=== PATIENT | female | born 1970 | race Caucasian/White ===

== ENCOUNTER 2016-02-26 20:28 | Emergency (ER) | payer SELFPAY ==
--- NOTE | 2016-02-26 21:30 | ERRECORD ---
[facility] EMERGENCY RECORD HPI SHOULDER (20:48 JLOY) CHIEF COMPLAINT: Patient presents for evaluation of pain, to the right shoulder, Patient presents for evaluation of Pain in right shoulder, ant and along right suprospinatous muscle. Hurts to move. Started 1 week ago and gradually worsening. Feel 2 days before it started flat on her back but no pain at that time. No other injury. HISTORIAN: History provided by patient. MECHANISM OF INJURY: Unknown mechanism. LOCATION: Symptoms are generalized, Radiation is not present. QUALITY: Pain is dull in nature. TIME COURSE: Gradual onset of symptoms, Symptoms are worsening, are constant. ASSOCIATED WITH: No associated decreased range of motion, No associated decreased use, No associated distal injury, No associated distal neuro complaint, No associated elbow pain, No associated fever, No associated swelling, No associated weakness distal to injury. EXACERBATED BY: Patient's condition exacerbated by movement. RELIEVED BY: Patient's condition relieved by nothing. ROS (20:50 JLOY) CONSTITUTIONAL: Historian denies chills, denies fever. CARDIOVASCULAR: Historian denies chest pain. RESPIRATORY: Historian denies shortness of breath. MUSCULOSKELETAL: Historian denies neck pain. NEUROLOGIC: Historian denies focal weakness, denies paralysis, denies paresthesias, denies sensory changes. PAST MEDICAL HISTORY MEDICAL HISTORY: Flu vaccine not up to date, Tetanus immunization up to date, Pneumococcal vaccine not up to date, Notes: HHT, Past medical history includes history of hypertension, Past medical history includes neurological disease, transient ischemic attack, Past medical history includes pulmonary disease, asthma. Fibromyalgia, migraines. (20:39 MBOS) FEMALE SURGICAL HISTORY: Plastic tube from liver to pancreas, Surgical history of cholecystectomy, Surgical history of orthopedic surgery, Left Ulnar nerve relocated, Surgical history of tonsillectomy, Surgical history of tubal ligation. (20:39 MBOS) PSYCHIATRIC HISTORY: Psychiatric history includes, depression. (20:39 MBOS) SOCIAL HISTORY: Patient denies alcohol use, Patient denies drug use, Patient has no smoking history. (20:39 MBOS) NOTES: Nursing records reviewed, Agree with nursing records. (20:52 JLOY) KNOWN ALLERGIES No Known Allergies &a-1R&a+25V*p+0X*m0255D*c202B*c15G*c2P*p-0X&a-25V&a+1R Name: Gena Mcdaniel : 1970 F45 MedRec: [id number] AcctNum: [id number] Prepared: Sat Feb 26, 2016 21:24 by Interface Page 1 of 3 pMD [facility] EMERGENCY RECORD CURRENT MEDICATIONS (20:35 MBOS) lisinopril: TABLET : Strength - 10 mg : ORAL Patient Dose: 10 mg Oral once a day. hydrochlorothiazide: TABLET : Strength - 12.5 mg : ORAL Patient Dose: 10 mg Oral once a day. Zoloft: TABLET : Strength - 50 mg : ORAL Patient Dose: UNK. traMADol: TABLET : Strength - 50 mg : ORAL Patient Dose: Unknown. Pepcid AC: TABLET : Strength - 20 mg : ORAL Patient Dose: 1 tab(s) Oral once a day (in the morning). VITAL SIGNS (20:36 MBOS) VITAL SIGNS: BP: 151/74, Pulse: 77, Resp: 16, Temp: 98.2 (Oral), Pain: 6, O2 sat: 95, Time: 02/26/2016 20:36. PHYSICAL EXAM (20:50 JLOY) CONSTITUTIONAL: Vital Signs Reviewed, Patient appears non toxic, Patient alert and oriented to person, place and time. NECK: Neck exam included findings of normal range of motion, Trachea midline, no tenderness, no abrasions, no contusions, no ecchymosis. RESPIRATORY CHEST: Respiratory exam included findings of no respiratory distress, Chest exam included findings of chest movement symmetrical. BACK: Back exam included findings of normal inspection, range of motion normal, TTP right levator scapulae and right supraspinatus. UPPER EXTREMITY: TTP right AC joint and ant shoulder. FROM but painful. Neg empty can. Pain with internal rotation. NEURO: Alexis coma scale 15, Neuro exam findings include patient oriented to person, place and time, Speech normal, no focal motor deficits, no focal sensory deficits. PSYCHIATRIC: Normal affect. PROBLEM LIST No recorded problems DIAGNOSIS (21:11 JLOY) FINAL: PRIMARY: RIGHT shoulder pain. PRESCRIPTION No recorded prescriptions DISPOSITION &a-1R&a+25V*p+0X*d3706J*c202B*c15G*c2P*p-0X&a-25V&a+1R Name: Gena Mcdaniel : 1970 F45 MedRec: [id number] AcctNum: [id number] Prepared: Carlos Feb 26, 2016 21:24 by Interface Page 2 of 3 pMD [facility] EMERGENCY RECORD PATIENT: Disposition Type: Discharge, Disposition: *Discharge Home. (21:11 DIDIER) Patient left the department. (21:19 HOLLY) Mcintosh: DIDIER=MD Abdullahi, Tobias CRAIGOS=PARIS Davenport, Sheri &a-1R&a+25V*p+0X*[id number]*c202B*c15G*c2P*p-0X&a-25V&a+1R Name: JonasGena : 1970 F45 MedRec: [id number] AcctNum: [id number] Prepared: Carlos Feb 26, 2016 21:24 by Interface Page 3 of 3 pMD MTDD
--- NOTE | 2016-02-26 21:38 | PICIS ---
[facility] EMERGENCY RECORD TRIAGE (20:35 MBOS) TRIAGE NOTES: right shoulder pain x1 week, worse today. (20:35 MBOS) PATIENT: AGE: 45, GENDER: female, : Sun1970, TIME OF GREET: Sat Feb 26, 2016 20:29, PREFERRED LANGUAGE: Kyrgyz, ETHNICITY: Not or , ECODE BILLING MAP: [facility] ER, SSN: [id number], Zip Code: [address], KG WEIGHT: 99.79, PHONE: , , , PERSON ID: [id number], PCP: none. (20:35 MBOS) NAME: Gena Mcdaniel (20:40) COMPLAINT: RT SHOULDER PAIN. (20:35 MBOS) ADMISSION: URGENCY: 4 Non Urgent, ADMISSION SOURCE: Home, TRANSPORT: CAR, BED: ER -03. (20:35 MBOS) ASSESSMENT: Assessment: right shoulder pain x 1 week, worse today, limited function in right arm. Pain is worse/better depending on neck position. (20:39 MBOS) PAIN: Patient complains of pain described as, on a scale 0-10 patient rates pain as 6. (20:39 MBOS) IMMUNIZATIONS: Flu vaccine not up to date, Tetanus immunization up to date, Pneumococcal vaccine not up to date. (20:39 MBOS) SIRS SCORING: Heart Rate 55-109 (0), Temp range 96.8-101.1 (0), respiratory rate 12-24 (0). (20:39 MBOS) PROVIDERS: TRIAGE NURSE: Sheri Davenport RN. (20:35 MBOS) VITAL SIGNS: BP 151/74, Pulse 77, Resp 16, Temp 98.2, (Oral), Pain 6, O2 Sat 95, Time 02/26/2016 20:36. (20:36 MBOS) PREVIOUS VISIT ALLERGIES: No Known Allergies. (20:35 MBOS) No Known Allergies. (20:39 MBOS) KNOWN ALLERGIES No Known Allergies CURRENT MEDICATIONS (20:35 MBOS) lisinopril: TABLET : Strength - 10 mg : ORAL Patient Dose: 10 mg Oral once a day. hydrochlorothiazide: TABLET : Strength - 12.5 mg : ORAL Patient Dose: 10 mg Oral once a day. Zoloft: TABLET : Strength - 50 mg : ORAL Patient Dose: UNK. traMADol: TABLET : Strength - 50 mg : ORAL Patient Dose: Unknown. Pepcid AC: TABLET : Strength - 20 mg : ORAL Patient Dose: 1 tab(s) Oral once a day (in the morning). VITAL SIGNS (20:36 MBOS) &a-1R&a+25V*p+0X*[id number]*c202B*c15G*c2P*p-0X&a-25V&a+1R Name: Gena Mcdaniel : 1970 F45 MedRec: [id number] AcctNum: [id number] Prepared: Sat Feb 26, 2016 21:24 by Interface Page 1 of 5 pMD [facility] EMERGENCY RECORD VITAL SIGNS: BP: 151/74, Pulse: 77, Resp: 16, Temp: 98.2 (Oral), Pain: 6, O2 sat: 95, Time: 02/26/2016 20:36. NURSING ASSESSMENT: EXTREMITY UPPER (20:41 MBOS) CONSTITUTIONAL: Patient arrives ambulatory, Gait steady, History obtained from patient, Patient appears comfortable, Patient cooperative, Patient alert, Oriented to person, place and time, Skin warm, Skin dry, Skin normal in color, Mucous membranes pink, Mucous membranes moist, Patient is well-groomed, Patient complains of right shoulder pain. PAIN: to the right shoulder, on a scale 0-10 patient rates pain as 6, Pain exacerbated by, posture change, Pain relieved by, posture change. LEFT UPPER EXTREMITY: Left upper extremity assessment findings include capillary refill less than 2 seconds, Skin color normal to hand, Skin temperature to hand warm, Distal sensation intact, Muscle tone normal. RIGHT UPPER EXTREMITY: Right upper extremity assessment findings include capillary refill less than 2 seconds, Skin color normal to hand, Skin temperature to hand warm, Distal sensation intact, Muscle tone normal, muscle strength 5, no edema present, radial pulse is +3, Notes: Patient has minimal swelling to right shoulder. Shoulder is tender to palpation, especially the anterior aspect. Arm movement exacerbates the pain. 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 Patient has full ROM in shoulder, arm, and fingers. SAFETY: Side rails up, Cart/Stretcher in lowest position, Call light within reach, Hospital ID band on. NURSING PROCEDURE: DISCHARGE NOTE (21:18 MBOS) DISCHARGE: Patient discharged to home, ambulating without assistance, friend driving, unaccompanied, Summary of Care printed/ provided, Discharge instructions given to patient, Simple or moderate discharge teaching performed, Above person(s) verbalized understanding of discharge instructions and follow-up care, Patient treated and evaluated by physician. NURSING PROCEDURE: SPLINTING (21:17 MBOS) PATIENT IDENTIFIER: Patient actively involved in identification process, Patient's identity verified by patient stating name, Patient's identity verified by patient stating date, Patient's identity verified by hospital ID bracelet. SPLINTING: Splinting indicated for pain control, Splint applied to, the right shoulder, sling applied. FOLLOW-UP: After procedure, capillary refill less than 2 seconds, After procedure, distal circulation intact, After procedure, distal motor function intact, After procedure, distal sensation intact, After procedure, distal pulses present. SAFETY: Side rails up, Cart/Stretcher in lowest position, Call light within reach, Hospital ID band on. &a-1R&a+25V*p+0X*e4257J*c202B*c15G*c2P*p-0X&a-25V&a+1R Name: Gena Mcdaniel : 1970 F45 MedRec: [id number] AcctNum: [id number] Prepared: Sat Feb 26, 2016 21:24 by Interface Page 2 of 5 [facility] EMERGENCY RECORD ORDER DETAILS Order Name: Miscellaneous Nurse Order(s), Status: Done, Time: 21:16 02/26/2016, User: HOLLY, - Ordered for: MD Fernando Joshua, - Entered by: MD Fernando Joshua - Sat Feb 26, 2016 21:10, - Quantity: 1, Order Name: XR Shoulder Rt 3 View STANDARD, Status: Active, Time: 20:48 02/26/2016, User: DIDIER, - Ordered for: MD Fernando Joshua, - Entered by: MD Fernando Joshua - Sat Feb 26, 2016 20:48, - Quantity: 1. HPI SHOULDER (20:48 JLOY) CHIEF COMPLAINT: Patient presents for evaluation of pain, to the right shoulder, Patient presents for evaluation of Pain in right shoulder, ant and along right suprospinatous muscle. Hurts to move. Started 1 week ago and gradually worsening. Feel 2 days before it started flat on her back but no pain at that time. No other injury. HISTORIAN: History provided by patient. MECHANISM OF INJURY: Unknown mechanism. LOCATION: Symptoms are generalized, Radiation is not present. QUALITY: Pain is dull in nature. TIME COURSE: Gradual onset of symptoms, Symptoms are worsening, are constant. ASSOCIATED WITH: No associated decreased range of motion, No associated decreased use, No associated distal injury, No associated distal neuro complaint, No associated elbow pain, No associated fever, No associated swelling, No associated weakness distal to injury. EXACERBATED BY: Patient's condition exacerbated by movement. RELIEVED BY: Patient's condition relieved by nothing. ROS (20:50 JLOY) CONSTITUTIONAL: Historian denies chills, denies fever. CARDIOVASCULAR: Historian denies chest pain. RESPIRATORY: Historian denies shortness of breath. MUSCULOSKELETAL: Historian denies neck pain. NEUROLOGIC: Historian denies focal weakness, denies paralysis, denies paresthesias, denies sensory changes. PAST MEDICAL HISTORY MEDICAL HISTORY: Flu vaccine not up to date, Tetanus immunization up to date, Pneumococcal vaccine not up to date, Notes: HHT, Past medical history includes history of hypertension, Past medical history includes neurological disease, transient ischemic attack, Past medical history includes pulmonary disease, asthma. Fibromyalgia, migraines. (20:39 MBOS) &a-1R&a+25V*p+0X*t9653M*c202B*c15G*c2P*p-0X&a-25V&a+1R Name: Gena Mcdaniel : 1970 F45 MedRec: [id number] AcctNum: [id number] Prepared: Carlos Feb 26, 2016 21:24 by Interface Page 3 of 5 pMD [facility] EMERGENCY RECORD FEMALE SURGICAL HISTORY: Plastic tube from liver to pancreas, Surgical history of cholecystectomy, Surgical history of orthopedic surgery, Left Ulnar nerve relocated, Surgical history of tonsillectomy, Surgical history of tubal ligation. (20:39 MBOS) PSYCHIATRIC HISTORY: Psychiatric history includes, depression. (20:39 MBOS) SOCIAL HISTORY: Patient denies alcohol use, Patient denies drug use, Patient has no smoking history. (20:39 MBOS) NOTES: Nursing records reviewed, Agree with nursing records. (20:52 JLOY) PHYSICAL EXAM (20:50 JLOY) CONSTITUTIONAL: Vital Signs Reviewed, Patient appears non toxic, Patient alert and oriented to person, place and time. NECK: Neck exam included findings of normal range of motion, Trachea midline, no tenderness, no abrasions, no contusions, no ecchymosis. RESPIRATORY CHEST: Respiratory exam included findings of no respiratory distress, Chest exam included findings of chest movement symmetrical. BACK: Back exam included findings of normal inspection, range of motion normal, TTP right levator scapulae and right supraspinatus. UPPER EXTREMITY: TTP right AC joint and ant shoulder. FROM but painful. Neg empty can. Pain with internal rotation. NEURO: Bartow coma scale 15, Neuro exam findings include patient oriented to person, place and time, Speech normal, no focal motor deficits, no focal sensory deficits. PSYCHIATRIC: Normal affect. EVENTS TRANSFER: Triage to Emergency Emergency Room -03. (Sat Feb 26, 2016 20:35 MBOS) Removed from Emergency Emergency Room -03. (21:19 MBOS) PROBLEM LIST No recorded problems DIAGNOSIS (21:11 JLOY) FINAL: PRIMARY: RIGHT shoulder pain. DISPOSITION PATIENT: Disposition Type: Discharge, Disposition: *Discharge Home. (21:11 JLOY) Patient left the department. (21:19 MBOS) INSTRUCTION (21:11 JLOY) DISCHARGE: SHOULDER PAIN (UNCERTAIN CAUSE). FOLLOWUP: Follow up with Primary Care Physician in 7-10 days. &a-1R&a+25V*p+0X*d1580P*c202B*c15G*c2P*p-0X&a-25V&a+1R Name: Gena Mcdaniel : 1970 F45 MedRec: [id number] AcctNum: [id number] Prepared: Sat Feb 26, 2016 21:24 by Interface Page 4 of 5 pMD [facility] EMERGENCY RECORD PRESCRIPTION No recorded prescriptions IMAGING (21:19 MBOS) *DISCHARGE INSTRUCTIONS RECEIPT: Image captured from scanner. *SUPPLY CHARGE SHEET: Image captured from scanner. DME: Image captured from scanner. ADMIN (21:11 JLOY) DIGITAL SIGNATURE: MD Fernando Joshua. Mcintosh: DIDIER=MD Fernando Joshua MBOS=PARIS Davenport, Sheri &a-1R&a+25V*p+0X*e3380L*c202B*c15G*c2P*p-0X&a-25V&a+1R Name: Gena Mcdaniel : 1970 5 MedRec: [id number] AcctNum: [id number] Prepared: Sat Feb 26, 2016 21:24 by Interface Page 5 of 5 pMD [facility] MEDICATION RECONCILIATION You were seen in the Emergency Department on: Sat Feb 26, 2016 KNOWN ALLERGIES No Known Allergies HOME MEDICATIONS CONTINUE PRESCRIBED hydrochlorothiazide : TABLET : Strength - 12.5 mg : ORAL Continue as prescribed Patient had been takin mg Oral once a day. lisinopril : TABLET : Strength - 10 mg : ORAL Continue as prescribed Patient had been takin mg Oral once a day. Pepcid AC : TABLET : Strength - 20 mg : ORAL Continue as prescribed Patient had been takin tab(s) Oral once a day (in the morning). traMADol : TABLET : Strength - 50 mg : ORAL Continue as prescribed Patient had been taking: Dose unknown Zoloft : TABLET : Strength - 50 mg : ORAL Continue as prescribed Patient had been taking: UNK. &a-1R&a+25V*p+0X*a5514J*c202B*c15G*c2P*p-0X&a-25V&a+1R Name: Gena Mcdaniel : 1970 F45 MedRec: [id number] AcctNum: [id number] Prepared: Sat Feb 26, 2016 21:24 by Interface pMD MTDD
--- NOTE | 2016-02-26 21:39 | RAD ---
THREE VIEWS RIGHT SHOULDER 02/26/16 COMPARISON: None. HISTORY: Shoulder pain for a week. FINDINGS: There is no widening of the acromioclavicular or coracoclavicular interspace. No displaced fracture or dislocation seen. IMPRESSION: No acute findings. POS: ABHIJIT
== END 2016-02-26 21:15 | disposition home or self-care (01) ==
LOC: NAV ERS 20:28
DX: M25.511 Pain in right shoulder (principal); I10 Essential (primary) hypertension; J45.909 Unspecified asthma, uncomplicated; F32.9 Major depressive disorder, single episode, unspecified
CPT/HCPCS: 99283

== ENCOUNTER 2016-11-17 20:31 | Emergency (ER) | payer SELFPAY ==
--- NOTE | 2016-11-17 21:11 | CT ---
CT BRAIN NONCONTRAST: 11/17/16 HISTORY: 46-year-old female status post acute traumatic blunt head injury resulting in loss of consciousness. FINDINGS: There is no midline shift or any other mass effect. There is no evidence of acute intracranial hemo rrhage, large cortical infarct, obstructive hydrocephalus, or extraaxial fluid collection. The calv arium is intact. IMPRESSION: No acute intracranial findings. geovany [] POS: MOSES
== END 2016-11-17 21:17 | disposition home or self-care (01) ==
LOC: NAV ERS 20:31
DX: S06.0X1A Concussion with loss of consciousness of 30 minutes or less, initial encounter (principal); S00.83XA Contusion of other part of head, initial encounter; I10 Essential (primary) hypertension; I78.0 Hereditary hemorrhagic telangiectasia; Z86.73 Personal history of transient ischemic attack (TIA), and cerebral infarction without residual deficits; J45.909 Unspecified asthma, uncomplicated; G43.909 Migraine, unspecified, not intractable, without status migrainosus; F32.9 Major depressive disorder, single episode, unspecified; Z79.899 Other long term (current) drug therapy; W20.8XXA Other cause of strike by thrown, projected or falling object, initial encounter
CPT/HCPCS: 70450

== ENCOUNTER 2017-07-18 17:42 | Emergency (ER) | payer SELFPAY ==
[2017-07-18] MEDS ORDERED: Acetaminophen 500 MG TAB ONE (18:50)
[2017-07-18] MEDS ORDERED: Ketorolac Tromethamine 60 MG/2 ML VIAL ONE (18:50)
--- NOTE | 2017-07-18 19:05 | RAD ---
LEFT SHOULDER: 07/18/17 Three views. HISTORY: Shoulder pain. No evidence of fracture or dislocation. IMPRESSION: No acute abnormality. POS: ABHIJIT
== END 2017-07-18 19:00 | disposition home or self-care (01) ==
LOC: NAV ERS 17:42
DX: S43.402A Unspecified sprain of left shoulder joint, initial encounter (principal); I10 Essential (primary) hypertension; Z86.73 Personal history of transient ischemic attack (TIA), and cerebral infarction without residual deficits; J45.909 Unspecified asthma, uncomplicated; F32.9 Major depressive disorder, single episode, unspecified; X50.9XXA Other and unspecified overexertion or strenuous movements or postures, initial encounter
CPT/HCPCS: 93005; 96372; J1885

== ENCOUNTER 2018-03-13 15:06 | Emergency (ER) | payer SELFPAY ==
[2018-03-13] MEDS ORDERED: Ketorolac Tromethamine 60 MG/2 ML VIAL ONE (15:43)
--- NOTE | 2018-03-13 16:19 | RAD ---
LEFT KNEE RADIOGRAPHS FOUR VIEWS: 03/13/18 PROVIDED CLINICAL HISTORY: Left knee pain. FINDINGS: There is no evidence for fracture or other acute osseous abnormality. Alignment appears anatomic. Coco nt spaces appear preserved. IMPRESSION: No evidence for an acute osseous abnormality or significant arthropathy. POS: OFF
== END 2018-03-13 16:25 | disposition home or self-care (01) ==
LOC: NAV ERS 15:06
DX: S83.92XA Sprain of unspecified site of left knee, initial encounter (principal); I10 Essential (primary) hypertension; J45.909 Unspecified asthma, uncomplicated; G43.909 Migraine, unspecified, not intractable, without status migrainosus; Z79.899 Other long term (current) drug therapy; Z86.73 Personal history of transient ischemic attack (TIA), and cerebral infarction without residual deficits; X50.9XXA Other and unspecified overexertion or strenuous movements or postures, initial encounter
CPT/HCPCS: 96372; J1885

== ENCOUNTER 2021-01-11 11:36 | Emergency (ER) | payer SELFPAY | END 2021-01-11 12:25 | disposition home or self-care (01) | LOC: NAV ERS 11:36 | DX: S60.221A Contusion of right hand, initial encounter (principal); W23.1XXA Caught, crushed, jammed, or pinched between stationary objects, initial encounter; I10 Essential (primary) hypertension; G43.909 Migraine, unspecified, not intractable, without status migrainosus; J45.909 Unspecified asthma, uncomplicated; Z86.73 Personal history of transient ischemic attack (TIA), and cerebral infarction without residual deficits; Z79.899 Other long term (current) drug therapy ==

== ENCOUNTER 2021-03-19 11:30 | Emergency (ER) | payer SELFPAY ==
[2021-03-19] MEDS ORDERED: Ondansetron PF 4 MG/2 ML Vial ONE (11:44)
[2021-03-19 12:20] LABS: #Lymphocytes 0.6 thou/uL (1.20-3.40); #Monocytes 0.5 thou/uL (0.11-0.59); #Neutrophils 10.6 thou/uL (1.40-6.50); %Basophils 0.3 % (0.0-1.0); %Eosinophils 0.3 % (0.0-10.0); %Lymphocytes 5.2 % (21.0-51.0); %Monocytes 4.2 % (0.0-10.0); Hemoglobin 13.4 g/dL (12.0-16.0); Mean Corpuscular HGB CONC 30.6 g/dL (32.0-36.0); Mean Corpuscular Hemoglobin 23.1 pg (27.0-31.0); Mean Corpuscular Volume 75.4 fL (78.0-98.0); Mean Platelet Volume 6.2 fL (7.4-10.4); Platelet Count 401 thou/uL (130-400); Red Blood Cell (RBC) Count 5.79 mill/uL (4.20-5.40); White Blood Cell (WBC) Count 11.8 thou/uL (4.8-10.8)
[2021-03-19 12:28] LABS: ALT (SGPT) 20 U/L (8-55); AST (SGOT) 18 U/L (5-34); Alkaline Phosphatase 85 U/L (40-110); Anion Gap 15 mmol/L (10-20); BUN (Urea Nitrogen) 19 mg/dL (7.0-18.7); Bilirubin, Total 0.7 mg/dL (0.2-1.2); Calc. Creatinine Clearance 0 mL/min (70-130); Calcium 8.9 mg/dL (7.8-10.44); Carbon Dioxide 23 mmol/L (22-29); Chloride 106 mmol/L (98-107); Globulin 4.4 g/dL (2.4-3.5); Glucose 114 mg/dL (70-105); Lipase 22 U/L (8-78); Potassium 3.8 mmol/L (3.5-5.1); Protein, Total 8.4 g/dL (6.0-8.3); Sodium 140 mmol/L (136-145)
[2021-03-19 12:40] LABS: Bilirubin Negative (Negative); Blood, Urine Negative (Negative); Clarity Clear (Clear); Glucose, Urine (Dipstick) Negative (Negative); Ketone, Urine 15 mg/dL (Negative); Leukocyte Negative (Negative); Nitrite Negative (Negative); Protein, Urine (Dipstick) 30 mg/dL (Neg-Trace); Urobilinogen 0.2 mg/dL (Less than 2); pH, Urine 7.5 (5.0-9.0)
[2021-03-19 12:51] LABS: RBC/HPF 0-3 HPF (0-3); Squamous Epithelial 0-3 HPF (0-3); WBC/HPF 0-3 HPF (0-3)
[2021-03-19] MEDS ORDERED: Sodium Chloride 0.9% 2,000 ML ONE (12:57)
== END 2021-03-19 14:20 | disposition home or self-care (01) ==
LOC: NAV ERS 11:30
DX: K52.9 Noninfective gastroenteritis and colitis, unspecified (principal); E86.0 Dehydration; I10 Essential (primary) hypertension; J45.909 Unspecified asthma, uncomplicated; M79.7 Fibromyalgia; Z86.73 Personal history of transient ischemic attack (TIA), and cerebral infarction without residual deficits; Z79.899 Other long term (current) drug therapy
CPT/HCPCS: 80053; 81003; 81015; 83605; 83690; 85025; 96374; J2405; J7050

== ENCOUNTER 2021-05-03 11:35 | Emergency (ER) | payer SELFPAY ==
[2021-05-03] MEDS ORDERED: methylPREDNISolone Sod Succ/PF 125 MG/2 ML VIAL ONE (12:13)
== END 2021-05-03 12:30 | disposition home or self-care (01) ==
LOC: NAV ERS 11:35
DX: S39.012A Strain of muscle, fascia and tendon of lower back, initial encounter (principal); I10 Essential (primary) hypertension; Z86.73 Personal history of transient ischemic attack (TIA), and cerebral infarction without residual deficits; Z79.899 Other long term (current) drug therapy; X58.XXXA Exposure to other specified factors, initial encounter
CPT/HCPCS: 96372; 99283; J2930

== ENCOUNTER 2021-06-27 01:01 | Emergency (ER) | payer SELFPAY ==
[2021-06-27] MEDS ORDERED: Sodium Chloride 0.9% 1,000 ML ONE (01:23)
[2021-06-27 02:03] LABS: ALT (SGPT) 129 U/L (8-55); AST (SGOT) 148 U/L (5-34); Albumin 3.7 g/dL (3.5-5.0); Alkaline Phosphatase 126 U/L (40-110); Anion Gap 16 mmol/L (10-20); BUN (Urea Nitrogen) 10 mg/dL (7.0-18.7); Bilirubin, Total 0.6 mg/dL (0.2-1.2); Calc. Creatinine Clearance 0 mL/min (70-130); Calcium 8.4 mg/dL (7.8-10.44); Carbon Dioxide 23 mmol/L (22-29); Chloride 102 mmol/L (98-107); Globulin 3.4 g/dL (2.4-3.5); Glucose 111 mg/dL (70-105); Potassium 3.8 mmol/L (3.5-5.1); Protein, Total 7.1 g/dL (6.0-8.3); Sodium 137 mmol/L (136-145)
[2021-06-27 02:15] LABS: #Basophils 0.1 thou/uL (0.0-0.2); #Lymphocytes 0.5 thou/uL (1.20-3.40); #Monocytes 0.7 thou/uL (0.11-0.59); #Neutrophils 4.3 thou/uL (1.40-6.50); %Basophils 1.1 % (0.0-1.0); %Eosinophils 0.5 % (0.0-10.0); %Lymphocytes 8.2 % (21.0-51.0); %Monocytes 13.2 % (0.0-10.0); Hemoglobin 10.8 g/dL (12.0-16.0); Hypochromia SLIGHT = 6-15 cells (100X) (0-5/hpf); MDiff Complete? YES; Mean Corpuscular HGB CONC 29.5 g/dL (32.0-36.0); Mean Corpuscular Hemoglobin 22.5 pg (27.0-31.0); Mean Corpuscular Volume 76.2 fL (78.0-98.0); Mean Platelet Volume 6.9 fL (7.4-10.4); Microcytosis SLIGHT = 6-15 cells (100X) (0-5/hpf); Platelet Count 286 thou/uL (130-400); RBC Distribution Width 16.5 % (11.5-14.5); Red Blood Cell (RBC) Count 4.79 mill/uL (4.20-5.40); Target Cells SLIGHT = 2-5 cells (100X) (0-1/hpf); White Blood Cell (WBC) Count 5.6 thou/uL (4.8-10.8)
[2021-06-27] MEDS ORDERED: Acetaminophen 500 MG TAB ONE (02:52)
[2021-06-27] MEDS ORDERED: Prochlorperazine 10 MG/2 ML VIAL ONE (02:52)
== END 2021-06-27 04:23 | disposition short-term general hospital (02) ==
LOC: NAV ERS 01:01
DX: U07.1 COVID-19 (principal); R09.02 Hypoxemia; I10 Essential (primary) hypertension; J45.909 Unspecified asthma, uncomplicated; M79.7 Fibromyalgia; Z86.73 Personal history of transient ischemic attack (TIA), and cerebral infarction without residual deficits; Z79.899 Other long term (current) drug therapy
CPT/HCPCS: 71046; 80053; 82550; 83880; 84484; 85025; 94760; 96361; 96374; J0780; J7050

== ENCOUNTER 2023-06-26 14:40 | Emergency (ER) | payer SELFPAY ==
[2023-06-26 15:17] LABS: %Lymphocytes 20.4 % (21.0-51.0); %Monocytes 7.9 % (0.0-10.0); Hematocrit 30.4 % (36.0-47.0); Hemoglobin 8.5 g/dL (12.0-16.0); Manual Diff?? NO; Mean Corpuscular Hemoglobin 18.3 pg (27.0-31.0); Mean Corpuscular Volume 65.2 fl (78.0-98.0); Platelet Count 318 10x3/uL (130-400); RBC Distribution Width 17.2 % (11.5-14.5); Red Blood Cell (RBC) Count 4.66 mill/uL (4.20-5.40); White Blood Cell (WBC) Count 8.3 10x3/uL (4.8-10.8)
[2023-06-26 15:18] LABS: #Basophils 0.1 thou/uL (0.0-0.2); #Eosinphils 0.2 thou/uL (0.0-0.7); #Lymphocytes 1.7 thou/uL (1.20-3.40); #Monocytes 0.6 thou/uL (0.11-0.59); #Neutrophils 5.7 thou/uL (1.40-6.50); %Basophils 0.7 % (0.0-1.0); Anisocytosis SLIGHT = 6-15 cells (100X) (0-5/hpf); Microcytosis MODERATE=15-30 cells (100X) (0-5/hpf); Platelet Adequacy Comment Platelets Normal
[2023-06-26] MEDS ORDERED: Aspirin Chewable 81 MG TAB ONE (15:21)
[2023-06-26] MEDS ORDERED: Nitroglycerin 2% Ointment 1 INCH/1 GM Packet ONE ×2 (15:22→15:23)
[2023-06-26 15:32] LABS: ALT (SGPT) 30 U/L (8-55); AST (SGOT) 25 U/L (5-34); Albumin 3.5 g/dL (3.5-5.0); Alkaline Phosphatase 92 U/L (40-110); Anion Gap 15 mmol/L (10-20); BUN (Urea Nitrogen) 13 mg/dL (9.8-20.1); Bilirubin, Total 0.5 mg/dL (0.2-1.2); Calc. Creatinine Clearance 0 mL/min (70-130); Calcium 8.7 mg/dL (7.8-10.44); Carbon Dioxide 24 mmol/L (22-29); Chloride 105 mmol/L (98-107); Estimated GFR 98; Globulin 3.7 g/dL (2.4-3.5); Glucose 140 mg/dL (70-105); Lipase 31 U/L (8-78); Potassium 3.5 mmol/L (3.5-5.1); Protein, Total 7.2 g/dL (6.0-8.3); Sodium 140 mmol/L (136-145); Troponin I 0.015 ng/mL (< 0.028)
[2023-06-26] MEDS ORDERED: Furosemide 40 MG (4 mL) VIAL ONE (16:03)
[2023-06-26] MEDS ORDERED: Furosemide 20 MG (2 mL) VIAL ONE (16:03)
[2023-06-26 17:11] LABS: Influenza A by NAA Not Detected (NotDetected); Influenza B by NAA Not Detected (NotDetected); SARS-CoV-2 NAA Rapid Test Not Detected (NotDetected)
[2023-06-26 19:07] LABS: Troponin I 0.013 ng/mL (< 0.028)
== END 2023-06-26 18:46 | disposition short-term general hospital (02) ==
LOC: NAV ERS 14:40
DX: I11.0 Hypertensive heart disease with heart failure (principal); I50.9 Heart failure, unspecified; D64.9 Anemia, unspecified; R42 Dizziness and giddiness; Z79.899 Other long term (current) drug therapy
CPT/HCPCS: 36415; 71045; 80053; 83690; 83880; 84484; 85025; 93005; 96374; J1940

== ENCOUNTER 2023-12-14 13:54 | Emergency (ER) | payer SELFPAY | END 2023-12-14 14:25 | disposition home or self-care (01) | LOC: NAV ERS 13:54 | DX: R09.81 Nasal congestion (principal); R05.9 Cough, unspecified; I10 Essential (primary) hypertension; Z79.899 Other long term (current) drug therapy | CPT/HCPCS: 99283 ==

== ENCOUNTER 2024-01-15 08:04 | Emergency (ER) | payer SELFPAY ==
[2024-01-15] MEDS ORDERED: Furosemide 20 MG (2 mL) VIAL ONE (08:50)
[2024-01-15] MEDS ORDERED: Nitroglycerin 2% Ointment 1 INCH/1 GM Packet ONE (08:50)
[2024-01-15 08:56] LABS: #Eosinophils 0.2 thou/uL (0.0-0.7); #Lymphocytes 1.7 thou/uL (1.20-3.40); #Monocytes 0.6 thou/uL (0.11-0.59); #Neutrophils 5.2 thou/uL (1.40-6.50); %Basophils 1.3 % (0.0-1.0); %Eosinophils 2.2 % (0.0-10.0); %Lymphocytes 21.6 % (21.0-51.0); %Monocytes 8.2 % (0.0-10.0); %Neutrophils 66.7 % (42.0-75.0); Hematocrit 40.6 % (36.0-47.0); Hemoglobin 12.8 g/dL (12.0-16.0); Manual Diff?? NO; Mean Corpuscular HGB CONC 31.6 g/dL (32.0-36.0); Mean Corpuscular Volume 75.8 fl (78.0-98.0); Mean Platelet Volume 6.4 fL (7.4-10.4); Platelet Count 390 10x3/uL (130-400); RBC Distribution Width 14.2 % (11.5-14.5); Red Blood Cell (RBC) Count 5.36 mill/uL (4.20-5.40); White Blood Cell (WBC) Count 7.8 10x3/uL (4.8-10.8)
[2024-01-15 08:57] LABS: #Basophils 0.1 thou/uL (0.0-0.2); Microcytosis SLIGHT = 6-15 cells (100X) (0-5/hpf)
[2024-01-15 08:58] LABS: ALT (SGPT) 18 U/L (8-55); AST (SGOT) 14 U/L (5-34); Albumin 3.4 g/dL (3.5-5.0); Alkaline Phosphatase 83 U/L (40-110); Anion Gap 11 mmol/L (10-20); BUN (Urea Nitrogen) 15 mg/dL (9.8-20.1); Bilirubin, Total 0.4 mg/dL (0.2-1.2); Calc. Creatinine Clearance 0 mL/min (70-130); Calcium 8.9 mg/dL (7.8-10.44); Carbon Dioxide 28 mmol/L (22-29); Chloride 101 mmol/L (98-107); Estimated GFR 91; Globulin 4.9 g/dL (2.4-3.5); Glucose 114 mg/dL (70-105); Potassium 3.4 mmol/L (3.5-5.1); Protein, Total 8.3 g/dL (6.0-8.3); Sodium 137 mmol/L (136-145); Troponin I Less than 0.010 ng/mL (< 0.028)
[2024-01-15] MEDS ORDERED: Acetaminophen 325 MG TAB ONE (09:56)
== END 2024-01-15 10:10 | disposition home or self-care (01) ==
LOC: NAV ERS 08:04
DX: I10 Essential (primary) hypertension (principal); F17.290 Nicotine dependence, other tobacco product, uncomplicated; Z79.899 Other long term (current) drug therapy
CPT/HCPCS: 71045; 80053; 83880; 84484; 85025; 93005; 94760; 96374; J1940

== ENCOUNTER 2024-11-20 09:09 | Emergency (ER) | payer SELFPAY ==
[2024-11-20] MEDS ORDERED: Ketorolac Tromethamine 30 MG (1 mL) VIAL ONE (09:58)
[2024-11-20] MEDS ORDERED: Ondansetron PF 4 MG/2 ML Vial ONE (09:58)
[2024-11-20 10:45] LABS: #Basophils 0.0 thou/uL (0.0-0.2); #Eosinophils 0.1 thou/uL (0.0-0.7); #Lymphocytes 1.7 thou/uL (1.20-3.40); #Monocytes 0.7 thou/uL (0.11-0.59); #Neutrophils 7.1 thou/uL (1.40-6.50); %Basophils 0.3 % (0.0-1.0); %Eosinophils 1.3 % (0.0-10.0); %Lymphocytes 17.8 % (21.0-51.0); %Monocytes 6.8 % (0.0-10.0); %Neutrophils 73.8 % (42.0-75.0); Hematocrit 38.0 % (36.0-47.0); Hemoglobin 12.3 g/dL (12.0-16.0); Manual Diff?? NO; Mean Corpuscular Hemoglobin 23.2 pg (27.0-31.0); Mean Corpuscular Volume 71.8 fl (78.0-98.0); Platelet Count 308 10x3/uL (130-400); Red Blood Cell (RBC) Count 5.29 mill/uL (4.20-5.40); White Blood Cell (WBC) Count 9.7 10x3/uL (4.8-10.8)
[2024-11-20 10:54] LABS: Troponin I 0.025 ng/mL (< 0.028)
[2024-11-20 10:56] LABS: ALT (SGPT) 80 U/L (Less than 34); AST (SGOT) 69 U/L (11-34); Albumin 3.7 g/dL (3.1-4.5); Alkaline Phosphatase 117 U/L (40-110); Anion Gap 18 mmol/L (10-20); BUN (Urea Nitrogen) 9 mg/dL (9.8-20.1); Bilirubin, Total 0.7 mg/dL (0.3-1.2); Calc. Creatinine Clearance 0 mL/min (70-130); Calcium 8.4 mg/dL (7.8-10.44); Carbon Dioxide 20 mmol/L (22-29); Chloride 103 mmol/L (98-107); Globulin 4.1 g/dL (2.4-3.5); Glucose 134 mg/dL (70-105); Potassium 4.1 mmol/L (3.5-5.1); Sodium 137 mmol/L (136-145)
[2024-11-20] MEDS ORDERED: predniSONE 20 MG TAB ONE (11:19)
== END 2024-11-20 11:45 | disposition home or self-care (01) ==
LOC: NAV ERS 09:09
DX: S29.011A Strain of muscle and tendon of front wall of thorax, initial encounter (principal); J20.9 Acute bronchitis, unspecified; I10 Essential (primary) hypertension; I11.0 Hypertensive heart disease with heart failure; I50.9 Heart failure, unspecified; F17.290 Nicotine dependence, other tobacco product, uncomplicated; Z86.73 Personal history of transient ischemic attack (TIA), and cerebral infarction without residual deficits; Z79.899 Other long term (current) drug therapy
CPT/HCPCS: 80053; 84484; 85025; 87428; 93005; 94760; 96361; 96374; 96375; J1885; J7030; J7512

== ENCOUNTER 2024-12-07 22:46 | Emergency (ER) | payer SELFPAY ==
[2024-12-07] MEDS ORDERED: Ondansetron PF 4 MG/2 ML Vial ONE (23:11)
[2024-12-07 23:16] LABS: #Basophils 0.1 thou/uL (0.0-0.2); #Eosinophils 0.0 thou/uL (0.0-0.7); #Lymphocytes 0.8 thou/uL (1.20-3.40); #Monocytes 0.5 thou/uL (0.11-0.59); #Neutrophils 7.0 thou/uL (1.40-6.50); %Basophils 0.7 % (0.0-1.0); %Eosinophils 0.4 % (0.0-10.0); %Lymphocytes 9.1 % (21.0-51.0); %Monocytes 5.4 % (0.0-10.0); %Neutrophils 84.3 % (42.0-75.0); Hematocrit 37.6 % (36.0-47.0); Hemoglobin 12.3 g/dL (12.0-16.0); Mean Corpuscular Hemoglobin 22.6 pg (27.0-31.0); Mean Corpuscular Volume 69.1 fl (78.0-98.0); Platelet Count 341 10x3/uL (130-400); Red Blood Cell (RBC) Count 5.44 mill/uL (4.20-5.40); White Blood Cell (WBC) Count 8.3 10x3/uL (4.8-10.8)
[2024-12-07 23:30] LABS: ALT (SGPT) 49 U/L (Less than 34); AST (SGOT) 47 U/L (11-34); Albumin 3.7 g/dL (3.1-4.5); Alkaline Phosphatase 100 U/L (40-110); Anion Gap 14 mmol/L (10-20); BUN (Urea Nitrogen) 9 mg/dL (9.8-20.1); Bilirubin, Total 1.0 mg/dL (0.3-1.2); Calc. Creatinine Clearance 0 mL/min (70-130); Calcium 8.7 mg/dL (7.8-10.44); Carbon Dioxide 23 mmol/L (22-29); Chloride 103 mmol/L (98-107); Globulin 4.0 g/dL (2.4-3.5); Glucose 130 mg/dL (70-105); Lipase 17 U/L (8-78); Potassium 3.7 mmol/L (3.5-5.1); Sodium 136 mmol/L (136-145)
== END 2024-12-08 00:41 | disposition home or self-care (01) ==
LOC: NAV ERS 22:46
DX: A05.9 Bacterial foodborne intoxication, unspecified (principal); R04.2 Hemoptysis; G45.9 Transient cerebral ischemic attack, unspecified; F17.290 Nicotine dependence, other tobacco product, uncomplicated
CPT/HCPCS: 71045; 80053; 83690; 85025; 96361; 96374; J2405; J7030

== ENCOUNTER 2025-01-12 19:41 | Emergency (ER) | payer SELFPAY ==
[2025-01-12] MEDS ORDERED: Carvedilol 25 MG TAB ONE (20:39)
[2025-01-12] MEDS ORDERED: Nitroglycerin 0.4 MG TAB 1 EACH ONE (20:39)
[2025-01-12 20:51] LABS: ALT (SGPT) 64 U/L (Less than 34); AST (SGOT) 46 U/L (11-34); Albumin 3.6 g/dL (3.1-4.5); Alkaline Phosphatase 104 U/L (40-110); Anion Gap 14 mmol/L (10-20); BUN (Urea Nitrogen) 13 mg/dL (9.8-20.1); Bilirubin, Total 0.8 mg/dL (0.3-1.2); Calc. Creatinine Clearance 0 mL/min (70-130); Calcium 8.9 mg/dL (7.8-10.44); Carbon Dioxide 26 mmol/L (22-29); Chloride 104 mmol/L (98-107); Globulin 3.7 g/dL (2.4-3.5); Glucose 136 mg/dL (70-105); Potassium 3.6 mmol/L (3.5-5.1); Sodium 140 mmol/L (136-145)
[2025-01-12 20:53] LABS: Troponin I 0.018 ng/mL (< 0.028)
[2025-01-12 20:55] LABS: Hematocrit 37.2 % (36.0-47.0); Hemoglobin 11.8 g/dL (12.0-16.0); MDiff Complete? YES; Mean Corpuscular Hemoglobin 23.4 pg (27.0-31.0); Mean Corpuscular Volume 73.6 fl (78.0-98.0); Platelet Count 320 10x3/uL (130-400); Red Blood Cell (RBC) Count 5.06 mill/uL (4.20-5.40); White Blood Cell (WBC) Count 7.6 10x3/uL (4.8-10.8)
[2025-01-12] MEDS ORDERED: Furosemide 20 MG (2 mL) VIAL ONE (21:26)
[2025-01-12] MEDS ORDERED: Nitroglycerin 0.4 MG TAB (25 Tab Bottle) ONE (22:58)
[2025-01-12] MEDS ORDERED: Nitroglycerin 0.4 MG TAB (25 Tab Bottle) SL SCH (23:00)
[2025-01-12] MEDS ORDERED: Azithromycin 500 MG VIAL ONE (23:04)
== END 2025-01-13 00:25 | disposition home or self-care (01) ==
LOC: NAV ERS 19:41
DX: J18.9 Pneumonia, unspecified organism (principal); D64.9 Anemia, unspecified; E87.70 Fluid overload, unspecified; I11.0 Hypertensive heart disease with heart failure; I50.9 Heart failure, unspecified; J45.909 Unspecified asthma, uncomplicated; F17.290 Nicotine dependence, other tobacco product, uncomplicated; Z86.73 Personal history of transient ischemic attack (TIA), and cerebral infarction without residual deficits; Z79.51 Long term (current) use of inhaled steroids; Z79.899 Other long term (current) drug therapy
CPT/HCPCS: 36415; 71275; 80053; 83605; 83880; 84484; 85025; 85379; 87040; 93005; 96374; 96375; J0456; J1940; J2919; J7050

== ENCOUNTER 2025-02-01 10:34 | Emergency (ER) | payer SELFPAY ==
[~2025-02-01 10:34] MED LIST: Iopamidol 370 76% 100 ML VIAL ONE
[2025-02-01] MEDS ORDERED: dilTIAZem 25 MG/5 ML VIAL ONE (11:15)
[2025-02-01 11:27] LABS: Troponin I 0.096 ng/mL (< 0.028)
[2025-02-01 11:33] LABS: ALT (SGPT) 51 U/L (Less than 34); AST (SGOT) 35 U/L (11-34); Albumin 3.3 g/dL (3.1-4.5); Alkaline Phosphatase 87 U/L (40-110); Anion Gap 17 mmol/L (10-20); BUN (Urea Nitrogen) 14 mg/dL (9.8-20.1); Bilirubin, Total 1.0 mg/dL (0.3-1.2); Calc. Creatinine Clearance 0 mL/min (70-130); Calcium 8.7 mg/dL (7.8-10.44); Carbon Dioxide 24 mmol/L (22-29); Chloride 99 mmol/L (98-107); Globulin 3.7 g/dL (2.4-3.5); Glucose 144 mg/dL (70-105); Lipase 20 U/L (8-78); Magnesium 1.9 mg/dL (1.6-2.6); Potassium 3.3 mmol/L (3.5-5.1); Sodium 137 mmol/L (136-145)
[2025-02-01 11:40] LABS: Hematocrit 36.2 % (36.0-47.0); Hemoglobin 11.2 g/dL (12.0-16.0); Mean Corpuscular Hemoglobin 22.1 pg (27.0-31.0); Mean Corpuscular Volume 71.4 fl (78.0-98.0); Platelet Count 132 10x3/uL (130-400); Red Blood Cell (RBC) Count 5.07 mill/uL (4.20-5.40); White Blood Cell (WBC) Count 6.5 10x3/uL (4.8-10.8)
[2025-02-01 11:42] LABS: Platelet Adequacy Comment Appears Adequate
[2025-02-01 12:19] LABS: Glucose, Urine (Dipstick) Negative (Negative); Leukocyte Negative (Negative); Protein, Urine (Dipstick) > or equal to 300 mg/dL (Neg-Trace); Specific Gravity, Urine 1.025 (1.005-1.030)
[2025-02-01 12:24] LABS: Bacteria/HPF Rare-Few HPF (None Seen); CAUTI Indications for Culture Pelvic or flank pain; Mucous/LPF 1+ LPF (<2+); WBC/HPF 0-3 HPF (0-3)
[2025-02-01 12:25] LABS: Urine Culture Reflex No No
[2025-02-01] MEDS ORDERED: Enoxaparin 30 MG (0.3 mL) SYRINGE ONE (14:25)
[2025-02-01] MEDS ORDERED: Enoxaparin 100 MG (1 mL) SYRINGE ONE (14:26)
== END 2025-02-01 14:49 | disposition short-term general hospital (02) ==
LOC: NAV ERS 10:34
DX: I48.91 Unspecified atrial fibrillation (principal); R79.89 Other specified abnormal findings of blood chemistry; K42.9 Umbilical hernia without obstruction or gangrene; D25.9 Leiomyoma of uterus, unspecified; I11.0 Hypertensive heart disease with heart failure; I50.9 Heart failure, unspecified; F17.290 Nicotine dependence, other tobacco product, uncomplicated; Z79.899 Other long term (current) drug therapy; Z75.8 Other problems related to medical facilities and other health care
CPT/HCPCS: 71045; 74177; 80053; 81001; 83690; 83735; 83880; 84443; 84484; 85025; 85379; 93005; 96372; 96374; 96376; J1650; Q9967